=== PATIENT | male | born 1945 | race African-American/Black ===

== ENCOUNTER 2019-12-08 15:24 | Emergency (ER) | payer OTHER, MEDICARE ==
[~2019-12-08] VITALS: Ht 175.3 cm; Wt 84.0 kg
[~2019-12-08 15:24] MED LIST: AMLO-186 PO; AMLO-187 PO; ASPI-630 PO; LISI10TA2 PO; METF500T3 PO; METF750T39 PO; PRAV40TA2 PO; TAMS0.4C2 PO
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
[2019-12-08 16:19] LABS: BILIRUBIN,URINE NEGATIVE (NEG); CLARITY,URINE CLEAR; COLOR,URINE YELLOW; NITRITE,URINE NEGATIVE (NEG); PH,URINE 6.5 (<5.0-8.0); PROTEIN,URINE 30 mg/dL (NEG-TRACE)
[2019-12-08 16:26] LABS: AMPHETAMINE/METHAMPHETAMINE NEG (NEG); BARBITURATES NEG (NEG); BENZODIAZEPINES NEG (NEG); CANNABINOIDS NEG (NEG); COCAINE NEG (NEG); METHADONE NEG (NEG); OPIATES NEG (NEG); PHENCYCLIDINE NEG (NEG)
[2019-12-08 16:36] LABS: HYALINE CASTS, URINE FEW /HPF
[2019-12-08 16:37] LABS: BACTERIA,URINE 0 /HPF (0-FEW); RBC,URINE OCC /HPF (0-2); WBC,URINE OCC /HPF (0-4)
[2019-12-08 17:16] LABS: BASO # 0.1 x10^3/uL (0.0-0.2); BASO % 1 % (0-3); EOS # 0.1 x10^3/uL (0.0-0.7); EOS % 2 % (0-3); HEMATOCRIT 38.7 % (39.0-53.0); HEMOGLOBIN 12.9 g/dL (13.0-17.5); LYMPH # 1.8 x10^3/uL (1.0-4.8); LYMPH % 32 % (24-48); MEAN CORPUSCULAR HEMOGLOBIN 26 pg (25-35); MEAN CORPUSCULAR HGB CONC 33 g/dL (31-37); MEAN CORPUSCULAR VOLUME 79 fL (79-100); MONO # 0.5 x10^3/uL (0.0-1.1); MONO % 10 % (0-9); NEUT # 3.1 x10^3/uL (1.8-7.7); NEUT % 56 % (31-73); PLATELET COUNT 211 x10^3/uL (140-400); RED BLOOD COUNT 4.92 x10^6/uL (4.30-5.70); WHITE BLOOD COUNT 5.6 x10^3/uL (4.0-11.0)
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
[2019-12-08 18:43] LABS: PROTHROMBIN TIME PATIENT 14.1 SEC (11.7-14.0)
[2019-12-08 19:01] LABS: CALCIUM 9.3 mg/dL (8.5-10.1); CREATININE 0.9 mg/dL (0.7-1.3); GFR 99.8; POTASSIUM 3.6 mmol/L (3.5-5.1)
[2019-12-08 19:07] LABS: ALBUMIN 4.1 g/dL (3.4-5.0); TOTAL BILIRUBIN 0.3 mg/dL (0.2-1.0); TOTAL PROTEIN 8.1 g/dL (6.4-8.2)
[2019-12-08] MEDS ORDERED: CONTRAST GIVEN. MC PRN (19:15)
[2019-12-08] MEDS ORDERED: IOHEXOL 300 MG/ML 100ML VIAL. IV ONE (19:15)
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
[2019-12-08 19:48] VITALS: BP 164/86
== END 2019-12-08 20:19 | disposition home or self-care (01) ==
LOC: ER 15:24
DX: S80.01XA Contusion of right knee, initial encounter (principal); R10.11 Right upper quadrant pain; M79.604 Pain in right leg; M47.812 Spondylosis without myelopathy or radiculopathy, cervical region; M47.816 Spondylosis without myelopathy or radiculopathy, lumbar region; R10.2 Pelvic and perineal pain; R51.9 Headache, unspecified; M17.11 Unilateral primary osteoarthritis, right knee; R07.89 Other chest pain; E11.9 Type 2 diabetes mellitus without complications; E78.00 Pure hypercholesterolemia, unspecified; I10 Essential (primary) hypertension; V49.49XA Driver injured in collision with other motor vehicles in traffic accident, initial encounter; Y92.488 Other paved roadways as the place of occurrence of the external cause; Y93.89 Activity, other specified; Y99.8 Other external cause status
CPT/HCPCS: 36415; 70450; 71046; 71260; 72125; 72170; 73562; 74177; 80053; 80307; 81001; 85025; 85610; 85730; 86850; 86900; 86901; 99285; G0480; Q9967

== ENCOUNTER 2021-06-24 12:33 | Emergency (ER) | payer MEDICARE, OTHER ==
[~2021-06-24] VITALS: Ht 172.7 cm; Wt 81.8 kg
[~2021-06-24 12:33] MED LIST changes: +LISI10TA16 PO; -LISI10TA2 PO
[2021-06-24 13:00] VITALS: BP 167/84
[2021-06-24] MEDS ORDERED: TRIA15CR TP (13:44)
--- NOTE | 2021-06-24 13:44 | PHYS DOC ---
Past Medical History Past Medical History: Diabetes-Type II, High Cholesterol, Hypertension (ZORAIDA COMER MATERIAL SPREADER) Past Surgical History: No Surgical History (ZORAIDA COMER MATERIAL SPREADER) Smoking Status: Never Smoker Alcohol Use: None Drug Use: None (ZORAIDA COMER MATERIAL SPREADER) General Adult EDM: Chief Complaint: ITCHING HPI: HPI: Patient is a 75 year old male who presents with states since Sunday he has been getting random bug bites. He states it started up on his left thigh and those have since healed and now on Sunday he started with bug bites that are pink itchy and slightly raised. He lives in a apartment building by himself. He states on Sunday his retail training manager had some I come in and do bug spray. He states that he goes out to a hen house every day for water. Patient states he has tried hydrocortisone intake and Benadryl by mouth but does not seem to help. He denies any pain, fever, abdominal pain, nausea, vomiting, diarrhea, headache, dizziness, chest pain, shortness of air, injury or falls. He does have a history of diabetes, hypertension, high cholesterol. (ZORAIDA COMER MATERIAL SPREADER) Review of Systems: Review of Systems: Constitutional: Denies fever or chills. [] Eyes: Denies change in visual acuity. [] HENT: Denies nasal congestion or sore throat. [] Respiratory: Denies cough or shortness of breath. [] Cardiovascular: Denies chest pain or edema. [] GI: Denies abdominal pain, nausea, vomiting, bloody stools or diarrhea. [] : Denies dysuria. [] Musculoskeletal: Denies back pain or joint pain. + Right arm itching [] Integument: + rash. Neurologic: Denies headache, focal weakness or sensory changes. [] Endocrine: Denies polyuria or polydipsia. [] Lymphatic: Denies swollen glands. [] Psychiatric: Denies depression or anxiety. [] (ZORAIDA COMER MATERIAL SPREADER) Heart Score: C/O Chest Pain: No (ZORAIDA COMER MATERIAL SPREADER) Allergies: Allergies: Allergies Coded Allergies Type Severity Reaction Last Updated Verified No Known Drug Allergies 10/30/14 No (ZORAIDA COMER MATERIAL SPREADER) Physical Exam: PE: Constitutional: Well developed, well nourished, no acute distress, non-toxic appearance. [] HENT: Normocephalic, atraumatic, bilateral external ears normal, oropharynx moist, no oral exudates, nose normal. [] Eyes: PERRLA, EOMI, conjunctiva normal, no discharge. [] Neck: Normal range of motion, no tenderness, supple, no stridor. [] Cardiovascular:Heart rate regular rhythm, no murmur [] Lungs & Thorax: Bilateral breath sounds clear to auscultation [] Abdomen: Bowel sounds normal, soft, no tenderness, no masses, no pulsatile masses. [] Skin: Warm, dry, no erythema, right upper arm nonClustered slightly raised pink rash. [] Back: No tenderness, no CVA tenderness. [] Extremities: No tenderness, no cyanosis, no clubbing, ROM intact, no edema. [] Neurologic: Alert and oriented X 3, normal motor function, normal sensory function, no focal deficits noted. [] Psychologic: Affect normal, judgement normal, mood normal. [] (ZORAIDA COMER APRN) Current Patient Data: Vital Signs: Vital Signs Date Time Temp Pulse Resp B/P (MAP) Pulse Ox O2 Delivery O2 Flow Rate FiO2 06/24/21 13:00 97.6 63 18 167/84 (111) 97 Room Air 97.6 (ZORAIDA COMER APRN) EKG: EKG: [] (ZORAIDA COMER APRN) Radiology/Procedures: Radiology/Procedures: [] (ZORAIDA COMER APRN) Course & Med Decision Making: Course & Med Decision Making Pertinent Labs and Imaging studies reviewed. (See chart for details) See HPI. Alert and oriented x4. Ambulatory steady gait. Speaks in full clear sentences. The rash or bug bite areas do not look infected at this time. There is no drainage. There is no heat or cellulitis. There is no swelling to the extremity. Radial pulses strong present. Cap refill less than 2 seconds. Nonseptic in appearance. Patient will be given a prescription for triamcinolone cream. Patient is given strict return precautions that if they begin to look infected or he has any kind of red streaking he needs to come back to emergency room. Again at this time there is no signs of infection. [] (ZORAIDA COMER APRN) Dragon Disclaimer: Dragon Disclaimer: This electronic medical record was generated, in whole or in part, using a voice recognition dictation system. (ZORAIDA COMER APRN) Departure Departure Impression: Primary Impression: Insect bites Qualified Codes: S40.861A - Insect bite (nonvenomous) of right upper arm, initial encounter; W57.XXXA - Bitten or stung by nonvenomous insect and other nonvenomous arthropods, initial encounter Disposition: HOME / SELF CARE / HOMELESS Condition: STABLE Referrals: UNKNOWN PCP NAME (PCP) Patient Instructions: Insect Bite, Rashes-SportsMed Additional Instructions: Follow-up with your primary care provider or lock and dam operator this coming week if you are not getting better. Use cream as prescribed. You can take an allergy medication daily to help with itching also. Make sure you clean all linens in your house. If you have any signs of infection such as increased redness, red streaking, drainage on the bites, fever return to the emergency room. Scripts Triamcinolone Acetonide (TRIAMCINOLONE ACETONIDE 0.5% CREAM) 15 Gm Cream..g. 1 SILVIA TP BID PRN for RASH, #30 GM Prov: ZORAIDA COMER APRN 06/24/21 Attending Signature Attending Signature I have reviewed the PA/DOLPHIN TRAINER's note and plan of care. I was available for consultation as needed during the patient's visit in the emergency department. I agree with the clinical impression, plan, and disposition. (KENDRA CASTRO DO) ZORAIDA COMER APRN Jun 24, 2021 13:44 KENDRA CASTRO DO June 29, 2021 01:01
== END 2021-06-24 14:00 | disposition home or self-care (01) ==
LOC: ER 12:33
DX: S40.861A Insect bite (nonvenomous) of right upper arm, initial encounter (principal); E11.9 Type 2 diabetes mellitus without complications; E78.00 Pure hypercholesterolemia, unspecified; I10 Essential (primary) hypertension; W57.XXXA Bitten or stung by nonvenomous insect and other nonvenomous arthropods, initial encounter; Y93.89 Activity, other specified; Y92.89 Other specified places as the place of occurrence of the external cause; Y99.8 Other external cause status
CPT/HCPCS: 99281